=== PATIENT | male | born 1970 | race Caucasian/White ===

== ENCOUNTER 2017-02-24 09:59 | Emergency (ER) | payer OTHER ==
[~2017-02-24] VITALS: Ht 190.5 cm; Wt 97.5 kg
[2017-02-24] MEDS ORDERED: GLIP5TAB13 PO (10:11)
[2017-02-24] MEDS ORDERED: LISI-603 PO (10:11)
--- NOTE | 2017-02-24 10:17 | NUR ---
is at bedside doing his MSE, pending orders.
[2017-02-24] MEDS: ONDANSETRON IV *ER 4 MG/2 ML VIAL IV ONE (10:37)
[2017-02-24] MEDS: MORPHINE SULFATE 2 MG/1 ML DISP.SYRIN IV ONE ×2 (10:39→11:35)
[2017-02-24] MEDS: IV NORMAL SALINE 500 ML IV ONE (10:40)
[2017-02-24] MEDS ORDERED: MORPHINE SULFATE 2 MG/1 ML DISP.SYRIN ONE ×2 (10:45→11:49)
[2017-02-24] MEDS ORDERED: ONDANSETRON 4 MG/2 ML VIAL ONE (10:45)
[2017-02-24 10:52] LABS: BASOPHILS % (AUTO) 0.2 % (0.0-2.0); EOSINOPHILS # (AUTO) 0.1 K/uL (0.0-0.7); EOSINOPHILS % (AUTO) 1.4 % (0.0-7.0); HEMATOCRIT 42.2 % (36.7-47.1); LYMPHOCYTES % (AUTO) 19.2 % (20.5-51.5); MEAN CORPUSCULAR HEMOGLOBIN 29.1 uug (23.8-33.4); MEAN CORPUSCULAR HGB CONC 36 g/dL (32.5-36.3); MEAN CORPUSCULAR VOLUME 81.9 fL (73.0-96.2); MONOCYTES # (AUTO) 0.4 K/uL (2.0-10.0); MONOCYTES % (AUTO) 7.6 % (0.0-11.0); NEUTROPHILS # (AUTO) 3.9 K/uL (1.8-8.9); NEUTROPHILS % (AUTO) 71.6 % (38.5-71.5); PLATELET COUNT (AUTO) 193 K/uL (152-348); RED BLOOD CELL COUNT(AUTO) 5.15 MIL/uL (4.06-5.63); WHITE BLOOD COUNT (AUTO) 5.4 K/uL (3.6-10.2)
[2017-02-24] MEDS ORDERED: CLONIDINE HCL 0.2 MG TABLET ONE (10:56)
[2017-02-24 11:00] LABS: POTASSIUM 3.7 mmol/L (3.5-5.1)
[2017-02-24 11:05] LABS: BILIRUBIN,TOTAL 0.7 mg/dL (0.2-1.0); TOTAL PROTEIN, SERUM 7.7 g/dL (6.4-8.2)
[2017-02-24] MEDS: CLONIDINE HCL 0.2 MG TABLET PO ONE (11:26)
--- NOTE | 2017-02-24 12:00 | NUR ---
Patient is resting comfortably in bed with eyes closed. Patient reports NO DECREASE IN PAIN, MD aware.
[2017-02-24] MEDS: HYDROMORPHONE 1 MG/1 ML DISP.SYRIN IV ONE (12:13)
[2017-02-24] MEDS ORDERED: HYDROMORPHONE 2 MG/1 ML DISP.SYRIN ONE (12:25)
[2017-02-24 12:44] VITALS: BP 206/112
[2017-02-24] MEDS: LABETALOL HCL 100 MG/20 ML VIAL IV ONE (12:44)
[2017-02-24] MEDS ORDERED: LABETALOL HCL 100 MG/20 ML VIAL ONE (12:58)
[2017-02-24 15:54] LABS: *BILIRUBIN,URIN NEGATIVE (NEGATIVE); *BLOOD, URINE NEGATIVE (NEGATIVE); *CLARITY,URINE CLEAR (CLEAR); *COLOR,URINE YELLOW (YELLOW); *KETONES,URINE NEGATIVE (NEGATIVE); *PROTEIN,URINE NEGATIVE (NEGATIVE); *UROBILINOGEN,URINE 0.2 E.U./dl (NORMAL); LEUKOCYTE ESTERASE ,URINE NEGATIVE (NEGATIVE); NITRITE, URINE NEGATIVE (NEGATIVE); PH,URINE 5.5 (5.0-8.0); UGLUCOSE NEGATIVE (NEGATIVE)
[2017-02-24 16:05] LABS: MUCUS,URINE MANY /LPF (0-FEW); SQUAMOUS EPITHELIAL CELL,UR FEW /HPF (NONE SEEN)
== END 2017-02-24 16:05 | disposition short-term general hospital (02) ==
LOC: ER 09:59
DX: S40.012A Contusion of left shoulder, initial encounter (principal); I16.0 Hypertensive urgency; M47.812 Spondylosis without myelopathy or radiculopathy, cervical region; I10 Essential (primary) hypertension; E78.5 Hyperlipidemia, unspecified; Z88.0 Allergy status to penicillin; V43.52XA Car driver injured in collision with other type car in traffic accident, initial encounter; Y92.410 Unspecified street and highway as the place of occurrence of the external cause; Y93.89 Activity, other specified; Y99.8 Other external cause status
CPT/HCPCS: 36415; 70450; 71010; 72040; 73020; 73060; 73070; 80053; 81001; 83690; 85025; 93005; 96361; 96374; 96375; 96376; 99285; A4663; J1170; J2270 ×2; J2405; J3490; J7030